=== PATIENT | male | born 1960 | race Caucasian/White ===

== ENCOUNTER 2017-08-23 14:04 | Emergency (ER) | payer OTHER ==
[~2017-08-23 14:04] MED LIST: ALB18R INH; FEXO180T74 PO; FLUT16SP20 NS; HYDR-4308 PO; LIB PO; MONT5TAB PO; MULT1CAP59 PO; PAN40 PO; PRED20TA6 PO
[2017-08-23 14:12] VITALS: BP 153/107
[2017-08-23] MEDS ORDERED: ROSU5TAB8 PO (14:15)
--- NOTE | 2017-08-23 14:21 | ER Report ---
History and Physical Time Seen By MD: 14:21 Hx. of Stated Complaint: NERVE PAIN IN HANDS FROM CARPAL TUNNEL IS BOTHERING HIM TO THE POINT OF NAUSEA. JENNY IS NOT HELPING. SEEING HIS DOC ABOUT SURGERY ON / CHIEF COMPLAINT: Carpal tunnel flare HISTORY OF PRESENT ILLNESS: This is a 57-year-old male who presents to the emergency department for concerns of his carpal tunnel syndrome. Patient states that he was recently evaluated at [facility] for carpal tunnel syndrome, he has a follow-up appointment this coming Thursday with the orthopedists. Patient states that today he was working on his computer and the carpal tunnel on the left side began to cause him significant pain which caused some nausea. Patient states the pain is too much for the Aleve that he's been taking, and was wondering if there was anything else that we could do until he follows up with this primary care and orthopedist this week. Patient and no other complaints no vomiting, no chest pain or shortness of breath. No visual changes or headaches. No fevers, aches or chills. REVIEW OF SYSTEMS: Respiratory: No cough, no dyspnea. Cardiovascular: No chest pain, no palpitations. Gastrointestinal: As above. Musculoskeletal: As above. Allergies: Coded Allergies: No Known Drug Allergies (Verified , 08/23/17) Home Meds Active Scripts Prednisone (PREDNISONE) 20 Mg Tablet, 20 MG PO BID, #10 TAB Prov:SABI GLASGOW [facility] 08/23/17 Cyclobenzaprine Hcl (CYCLOBENZAPRINE HCL) 10 Mg Tablet, 5-10 MG PO TID Y for MUSCLE SPASMS, #9 TAB 0 Refills Prov:SABI GLASGOW [facility] 08/23/17 Ondansetron (ZOFRAN ODT) 4 Mg Tab.rapdis, 4 MG PO Q6H Y for NAUSEA/VOMITING, # 20 TAB.ARIS 0 Refills Prov:SABI GLASGOW [facility] 08/23/17 Reported Medications Rosuvastatin Calcium (CRESTOR) 5 Mg Tablet, 5 MG PO QDAY 08/23/17 Fluticasone Propionate (FLONASE) 16 Gm [place].susp, 2 SPRAYS NS QDAY 10/12/13 Montelukast Sodium 5 Mg Chew Tab (SINGULAIR 5 MG CHEW TAB) 5 Mg Tab.chew, 1 TAB PO QDAY, TAB.CHEW CHEW ONE TABLET EVERY DAY 10/12/13 Multivitamins (Multivitamin) 1 Each Capsule, 1 EACH PO DAILY, 0 Refills 01/05/11 Fexofenadine Hcl (Anahi) 180 Mg Tablet, 180 MG PO QDAY, 0 Refills 01/05/11 Discontinued Reported Medications Albuterol Sulfate (VENTOLIN HFA) 18 Gm Inh, 1-2 PUFF INH 3-4XD, INH 10/12/13 Discontinued Scripts Hydrocodone Bit/Acetaminophen (NORCO 7.5-325 TABLET) 1 Each Tablet, 1 EACH PO Q6H Y for cough suppression, #20 Prov:YUEMANJINDER DO 10/12/13 Prednisone (PREDNISONE) 20 Mg Tablet, 20 MG PO TID, #9 Prov:YUEMANJINDER Vazquez DO 10/12/13 Past Medical/Surgical History Patient has a past medical and surgical history of seasonal allergies, asthma, carpal tunnel syndrome, wears glasses, right Achilles tendon rupture and repair. Hx Smoking: No Hx Substance Use Disorder: No Hx Alcohol Use: Yes (OCC) Constitutional Vital Sign - Last 24 Hours 08/23/17 14:12 Temp 98.9 Pulse 71 Resp 14 B/P (MAP) 153/107 Pulse Ox 97 O2 Delivery Room Air Physical Exam General Appearance: The patient is alert, has no immediate need for airway protection and no current signs of toxicity. Eyes: Pupils equal and round no injection. Respiratory: Chest is non tender, lungs are clear to auscultation. Cardiac: regular rate and rhythm. Gastrointestinal: Abdomen is soft and non tender, no masses, bowel sounds normal. Musculoskeletal: Neck: Neck is supple and non tender. Extremities mildly positive Tinnel sign, negative Phalen's. Skin: No rashes or lesions. DIFFERENTIAL DIAGNOSIS: After history and physical exam differential diagnosis was considered for carpal tunnel syndrome, nausea. Medical Decision Making ED Course/Re-evaluation ED Course The patient was admitted to room. A history and physical were obtained. Differential diagnoses were considered. After discussion with patient it does appear that this is a carpal tunnel syndrome flareup, he states the sharp pains to his wrist radiated up into the elbow which hopefully have caused some nausea. Patient does have a follow-up appointment in 2 days with the orthopedist for reevaluation and discussion of carpal tunnel release. I did send a prescription to the patient's pharmacy for Flexeril, Zofran and prednisone. Patient and other questions or concerns at this time and was discharged home. Decision to Disposition Date: Aug 23, 2017 Decision to Disposition Time: 14:30 Depart Departure Latest Vital Signs Vital Signs Date Time Temp Pulse Resp B/P (MAP) Pulse Ox O2 Delivery O2 Flow Rate FiO2 08/23/17 14:12 98.9 71 14 153/107 97 Room Air Impression: Primary Impression: Carpal tunnel syndrome of left wrist Additional Impression: Nausea Condition: Improved Disposition: HOME OR SELF-CARE Referrals: EMMA SAEED DO (PCP) New Scripts Prednisone (PREDNISONE) 20 Mg Tablet 20 MG PO BID, #10 TAB Prov: SABI GLASGOW- 08/23/17 Cyclobenzaprine Hcl (CYCLOBENZAPRINE HCL) 10 Mg Tablet 5-10 MG PO TID Y for MUSCLE SPASMS, #9 TAB 0 Refills Prov: SABI GLASGOWP- 08/23/17 Ondansetron (ZOFRAN ODT) 4 Mg Tab.rapdis 4 MG PO Q6H Y for NAUSEA/VOMITING, #20 TAB.ARIS 0 Refills Prov: SABI GLASGOW- 08/23/17 Patient Instructions: Acute Nausea and Vomiting (ED), Carpal Tunnel Syndrome ( GEN), Carpal Tunnel Syndrome Exercises (GEN) Additional Instructions: Drink plenty of water. Get plenty of rest. Take Tylenol 1000mg every 8 hours as needed for pain. Take the Flexeril as prescribed. Take the Zofran and steroid as prescribed. Follow-up with orthopedics as scheduled on Thursday. Return to the emergency department for any other concerns or worsening symptoms. Problem Qualifiers SABI GLASGOW Aug 23, 2017 14:21
[2017-08-23] MEDS ORDERED: CYCL10TA29 PO (14:33)
[2017-08-23] MEDS ORDERED: PRED20TA6 PO (14:33)
[2017-08-23] MEDS ORDERED: ONDA4TAB PO (14:33)
== END 2017-08-23 14:47 | disposition home or self-care (01) ==
LOC: ER 14:13
DX: G56.02 Carpal tunnel syndrome, left upper limb (principal); R11.0 Nausea
CPT/HCPCS: 99281